=== PATIENT | male | born 1945 | race Caucasian/White ===

== ENCOUNTER 2016-08-26 09:24 | Emergency (ER) | payer MEDICARE, MEDICAID ==
[~2016-08-26] VITALS: Ht 180.3 cm; Wt 90.7 kg
[2016-08-26] MEDS ORDERED: LORAZEPAM0.5 MG/TAB PO ×2 (09:35→09:41)
[2016-08-26] MEDS ORDERED: ASPIRIN 81MG TA81 MG PO (09:35)
[2016-08-26] MEDS ORDERED: BENZTROPINE1 MG PO (09:36)
[2016-08-26] MEDS ORDERED: DIVALPROEX DR500 MG PO (09:36)
[2016-08-26] MEDS ORDERED: FINASTERIDE5 MG PO (09:37)
[2016-08-26] MEDS ORDERED: COL-RITE250 MG PO (09:37)
[2016-08-26] MEDS ORDERED: MEMANTINE HCL5 MG PO (09:42)
[2016-08-26] MEDS ORDERED: OMEPRAZOLE20 MG PO (09:44)
[2016-08-26] MEDS ORDERED: QUETIAPINE FUM200 MG PO (09:45)
[2016-08-26] MEDS ORDERED: SEROQUEL 100MG100 MG PO (09:47)
--- NOTE | 2016-08-26 09:49 | Emergency Room Report ---
See Addendum History of Present Illness Time Seen by [id number] Presenting Problem in Triage Pt arrived:Ambulance Stretcher Presenting Problem:PER EMS PT HAS WEAKNESS TODAY. PATIENT STATES HE HAS BELLY PAIN THAT STARTED IN THE NIGHT. PATIENT STATES HE WAS FINE YESTERDAY. 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 N Clinical Suspician of Infection? N Mental Status: 1 - Regular (Normal Baseline) Sepsis Risk:Low Sepsis Risk Have you (or family members/close friends) recently traveled outside the [place]? N If Yes, where/when: Have you had exposure to infectious disease within the past month? TB? Other? Specify: Patient complains of diarrhea starting yesterday he lives in assisted living facility he to me denies any abdominal pain, Tates he does have some cramps when he is having the diarrhea he denies fever chills cough he denies headache chest pain he denies bodyaches he states he's been having diarrhea and dehydration and feels somewhat weak today to think focal. He currently denies any pain Comment michael Pena MD for [facility] the creatinine elevation renal etc. DC home ALLERGIES Coded Allergies: No Known Allergies (08/26/16) Home Medications Reported Medications ASPIRIN (Aspirin) 81 MG PO DAILY Lorazepam (Lorazepam 0.5MG) 0.5 MG PO DAILY BENZTROPINE MESYLATE (Benztropine 1MG Tab) 1 MG PO DAILY Divalproex Sodium (Divalproex Dr) 1,000 MG PO QHS Docusate Sodium (Col-Rite) 250 MG PO DAILY Finasteride 5 MG PO DAILY Lorazepam (Lorazepam 0.5MG) 0.5 MG PO BID Memantine HCl 5 MG PO BID Omeprazole (Omeprazole 20MG) 20 MG PO DAILY Quetiapine Fumarate (Quetiapine 200MG) 200 MG PO QAM QUETIAPINE FUMARATE (Quetiapine Fumarate) 100 MG PO QHS RISPERIDONE MICROSPHERES (Risperdal Consta) 50 MG IM [id number] Risperidone (Risperdal 1 Mg Tab) 1 MG PO BID History Medical History General Hypertension? Yes Hyperlipidemia? Yes BPH? Yes More? Yes Additional hx: SCHIZOPHRENIA, SJOGREN DISORDER Immunization Hx DT/Tetanus Unknown Surgical Hx Previous Surgery?N Social History Smoking Hx Smoker: Never Smoker Tobacco: No Alcohol Alcohol: No Review of Systems All Other Systems Reviewed and Negative Physical Exam Vital Signs Vital Signs Date Time Temp Pulse Resp B/P Pulse O2 O2 Flow FiO2 Ox Delivery Rate 08/26 1046 92 18 135/87 96 08/26 1013 91 18 121/78 96 08/26 0927 97.9 101 18 124/69 95 General Appearance: Nontoxic Head: Normocephalic, without obvious abnormality, atraumatic. Eyes: conjunctiva/corneas clear ENT: Mucous membranes dry Neck: No jugular venous distention. Cardiac: regular rate and rhythm Lungs: Clear to auscultation bilaterally Abdomen: Nontender to deep palpation, Nondistended, positive bowel sounds, no rebound : No CVA tenderness Extremities: no edema Musculoskeletal: No chest wall tenderness Skin: No rashes or lesions to exposed skin. Neurologic: Alert. No gross focal deficits Psychiatric: Normal affect (Antonio PENN, [place]) General Appearance no apparent distress Respiratory Status No: respiratory distress. Cardiovascular no JVD Neurologic alert Medical Decision Making LABS/Meds/Orders Pt receiving controlled substance in ED? No Comment [id number] call out to [facility] to dw creatinine, etc Results/Orders Laboratory Tests 08/26/16 0950: Sodium 136, Potassium 3.5, Chloride 99, Carbon Dioxide 21 L, BUN 44 H, Creatinine 1.8 H, Estimated Creat Clear 48 L, Estimated GFR (MDRD) 37, Glucose 120 H, Calcium 7.3 L, Total Bilirubin 0.4, AST 26, ALT 25, Alkaline Phosphatase 56, Total Protein 7.8, Albumin 3.3 L, Globulin 4.5 H, Albumin/ Globulin Ratio 0.7 L, Amylase 77, Lipase 44 L 08/26/16 0950: Sodium Cancelled, Potassium Cancelled, Chloride Cancelled, Carbon Dioxide Cancelled, BUN Cancelled, Creatinine Cancelled, Estimated Creat Clear Cancelled, Estimated GFR (MDRD) Cancelled, Glucose Cancelled, Calcium Cancelled, Total Bilirubin Cancelled, AST Cancelled, ALT Cancelled, Alkaline Phosphatase Cancelled, Total Protein Cancelled, Albumin Cancelled, Globulin Cancelled, Albumin/Globulin Ratio Cancelled, WBC 8.6, RBC 5.16, Hgb 16.8, Hct 50.8, MCV 98.5 H, RDW 13.9, Plt Count 226, MPV 6.7 L, Gran % 73.2, Gran # 6.3, Lymphocytes % 15.2, Monocytes % 11.1 H, Eosinophils % 0.3, Basophils % 0.2, Lymphocytes # 1.3, Monocytes # 1.0, Eosinophils # 0.0, Basophils # 0.0, PUBS MCHC 33.1, MCH 32.6 H Current Medication Orders Sig/Adalid Start time Last Medication Dose Route Stop Time Status Admin Sodium Chloride 1,000 ML .Q1H1M 08/26 1100 AC IV 08/26 1200 Sodium Chloride 10 ML PRN PRN 08/26 1100 AC IV 08/27 1053 Sodium Chloride 1,000 ML .STK-MED ONE 08/26 1050 DC IV Sodium Chloride 1,000 ML .Q1H 08/26 1000 AC 08/26 IV 08/26 1148 1052 Sodium Chloride 10 ML PRN PRN 08/26 1000 AC IV 08/27 0948 Sodium Chloride 10 ML PRN PRN 08/26 1000 AC IV 08/27 0949 Sodium Chloride 1,000 ML .STK-MED ONE 08/26 0955 DC IV Sodium Chloride 10 ML PRN PRN 08/26 0945 AC IV 08/27 0935 Orders Procedure Date/time Status ABDOMEN-FLAT & UPRIGHT 08/26 1047 Active IV SALINE LOCK 08/26 0950 Active URINALYSIS/COMPLETE 08/26 0950 Active LIPASE 08/26 0950 Complete COMPLETE METABOLIC PANEL 08/26 0950 Complete AMYLASE 08/26 0950 Complete IV SALINE LOCK 08/26 0936 Active CBC WITH AUTO DIFF 08/26 0936 Complete 1130am NTND, pt eating drinking, desires another pop, also has ambulated wnl per RN (Antonio PENN, [place]) XRAY/CT/US XRAY/CT/US XRAY abdomen XR interpretation by reviewed by me Xray Results nonspecific gas pattern, AF levels Departure Departure Disposition DC Home or Self Care(routine) Clinical Impression Primary Impression: Acute diarrhea Secondary Impressions: Dehydration, Elevated serum creatinine Condition STABLE Referrals Trudi Mercer MD (Family) Patient Instructions DI for Diarrhea and Traveler's Diarrhea -- Adult Additional Instructions call your doctor for recheck, return if worse if any nausea developes take zofran as directed Discharge Counseling Counseled pt/family regarding diagnosis, test results, home care, follow up needs Prescriptions Current Visit Scripts Ondansetron (Zofran 4MG Odt) 4 MG PO Q6HP PRN NAUSEA AND VOMITING #10 ODT ED Critical Care Critical Care No at [id number]
[2016-08-26] MEDS ORDERED: RISPERDAL CONST50 MG IM (09:52)
[2016-08-26] MEDS ORDERED: RISPERDAL 1 MG T1 MG PO (09:52)
[2016-08-26 09:59] LABS: HEMOGLOBIN 16.8 g/dL (14.1-18.0); LYMPH # 1.3 K/mm3 (0.7-4.5); LYMPH % 15.2 % (10-50)
[2016-08-26] MEDS ORDERED: ZOFRAN ODT4 MG PO (11:36)
[2016-08-26 12:05] LABS: URINE BILIRUBIN - DIPSTICK NEGATIVE (NEG); URINE BLOOD 2+ (NEG)
[2016-08-26 14:28] VITALS: BP 119/78
--- NOTE | 2016-08-26 18:43 | RADIOLOGY REPORT PS360 ---
ABDOMEN-FLAT UPRIGHT ORDERING PHYSICIAN : Desean Alvarez MD PATIENT AGE: 71 years GENDER: Male INDICATION: DIARRHEA TECHNIQUE: Flat and upper views of abdomen radiograph COMPARISON: No prior FINDINGS Prominent gas seen throughout right and transverse colon. Air-fluid levels are seen within these prominent bowel loops. Also generous fluid in stomach. There are some scattered air-fluid levels with generous fluid in small bowel the right abdomen. Otherwise small bowel not well visualized. At this point I suspect we are viewing a enteritis. There is some ill-defined density at the lower pelvis and you may want to consider a follow-up ultrasound or CT to exclude ascites or or other density here at the lower abdomen contributing to this appearance particularly if patient has distention or pain persist. Elevation right hemidiaphragm. Bibasilar atelectasis. Gas-filled Large Bowel loops beneath the right hemidiaphragm account for the gas in this region beneath right hemidiaphragm. Likely very redundant transverse colon IMPRESSION: Findings compatible with Gastroenteritis and diarrhea Liquid stool with prominent gas distending the right & redundant transverse colon . These gas filled large bowel loops extending beneath right hemidiaphragm anterior to the liver. Air-fluid levels in generous fluid throughout nondilated small bowel at the & right abdomen. No small bowel dilatation or obstruction-Again findings compatible with enteritis
== END 2016-08-26 14:29 | disposition home or self-care (01) ==
LOC: ER 09:24
PROVIDERS: Emergency Medicine
DX: R19.7 Diarrhea, unspecified (principal); N39.0 Urinary tract infection, site not specified; E86.0 Dehydration; I10 Essential (primary) hypertension; F20.9 Schizophrenia, unspecified